=== PATIENT | female | born 1990 | race Caucasian/White ===

== ENCOUNTER → 2017-08-02 | Outpatient (CLI) | payer OTHER ==
[~2017-08-02] MED LIST: BAC PO; FAM20 PO; L-NO1TBD6 PO; PREN-127 PO; PRO25 PO
[2017-08-02 09:14] LABS: PLATELET COUNT, AUTOMATED 287 K/uL (150-450)
== END ==
LOC: LAB 08:56
PROVIDERS: ATTEND Obstetrics & Gynecology
DX: Z34.01 Encounter for supervision of normal first pregnancy, first trimester (principal); R82.79 Other abnormal findings on microbiological examination of urine
CPT/HCPCS: 36415; 81001; 85025; 86592; 86762; 86850; 86900; 86901; 87088; 87340

== ENCOUNTER → 2017-08-30 | Outpatient (CLI) | payer OTHER | LOC: LAB 09:11 | PROVIDERS: ATTEND Student in an Organized Health Care Education/Training Program | DX: Z11.3 Encounter for screening for infections with a predominantly sexual mode of transmission (principal); Z11.8 Encounter for screening for other infectious and parasitic diseases | CPT/HCPCS: 87491; 87591 ==

== ENCOUNTER → 2017-11-18 | Outpatient (CLI) | payer OTHER ==
--- NOTE | 2017-11-18 13:59 | RADIOLOGY IMAGING REPORT ---
[place] [facility] [place] NAME: Andie Joshua : 1990 MR: [id number] V: [id number] EXAM DATE: ORDERING PHYSICIAN: ELIAN CELESTE TECHNOLOGIST: Location: [facility] Patient: Andie Joshua : 1990 Visit/Account:[id number] Date of Sevice: 11/18/2017 [facility] OB ANATOMICAL SURVEY HISTORY: Anatomical survey FINDINGS: Intrauterine gestations: 1 presentation: Vertex heart rate: 150 bpm Amniotic fluid volume: AMRIT 15 cm; Largest amniotic fluid pocket 4.4 cm Placenta: Left lateral/posterior No placenta previa or retroplacental hemorrhage. Uterus: Gravid, otherwise normal Maternal adnexa: Negative Cervix: Closed Gestational Parameters: BPD: 5.3 cm; 22 weeks/ 2 days HC: 19.7 cm; 22 weeks/ 0 days AC: 16.3 cm; 21 weeks/ 3 days FL: 8.9 cm; 22 weeks/ 4 days Average ultrasound age (AUA): 22 weeks/ 1 days Estimated weight (EFW): 458 grams +/- 67 grams. Fetus is in the 88th percentile based on LMP Anatomic Survey: Intracranial structures, 4-chamber heart, stomach, kidneys, urinary bladder, spine, 3-vessel cord and cord insertion are unremarkable. Two upper and two lower extremities visualized. IMPRESSION: IUP of 22 weeks one day. JOHNSON of 03/23/2018. This correlates eight days ahead of the LMP JOHNSON of 2018 Report Dictated By: Rubén Razo MD at 11/18/2017 1:28 PM Report E-Signed By: Rubén Razo MD at 11/18/2017 1:55 PM WSN:ISRA
== END ==
LOC: RAD 07:53
PROVIDERS: ATTEND Student in an Organized Health Care Education/Training Program
DX: Z02.9 Encounter for administrative examinations, unspecified (principal)

== ENCOUNTER → 2017-12-27 | Outpatient (CLI) | payer OTHER ==
[~2017-12-27] MED LIST changes: +DIPH0.5D12 IM; +RHO(150015 IM
== END ==
LOC: LAB 08:08
PROVIDERS: ATTEND Student in an Organized Health Care Education/Training Program
DX: Z34.92 Encounter for supervision of normal pregnancy, unspecified, second trimester (principal)
CPT/HCPCS: 36415; 82950; 85027

== ENCOUNTER 2018-03-21 07:01 | Inpatient (IN) | payer OTHER ==
[~2018-03-21] VITALS: Ht 154.9 cm; Wt 72.6 kg
[2018-03-21 07:48] VITALS: BP 98/50
[2018-03-21] MEDS ORDERED: FAMOTIDINE(*) 20MG/50ML PREMIX 50 ML IVPB PRN (08:34)
[2018-03-21] MEDS ORDERED: OXYTOCIN 30 UNIT/D5LR 500 ML 500 ML IV PRN ×2 (08:34→13:00)
[2018-03-21] MEDS ORDERED: ceFAZolin(*) 2GM/D5W 50ML 50 ML IVPB PRN (08:34)
[2018-03-21] MEDS ORDERED: fentaNYL CITR 100 MCG/2 ML AMP IVP PRN (08:35)
[2018-03-21] MEDS ORDERED: METOCLOPRAMIDE 10 MG/2 ML SDV IVP PRN (08:35)
[2018-03-21] MEDS ORDERED: LIDOCAINE/SOD BICARB 8.4% SYR SC PRN (08:35)
[2018-03-21] MEDS ORDERED: TERBUTALINE SULF 1 MG/ML VIAL SUBQ PRN (08:35)
[2018-03-21] MEDS ORDERED: LIDOCAINE 1% LOCAL 300 MG/30ML INJ PRN (08:35)
[2018-03-21] MEDS ORDERED: MISOPROSTOL 25 MCG CAP PO PRN (09:00)
[2018-03-21 09:22] LABS: PLATELET COUNT, AUTOMATED 195 K/uL (150-450)
--- NOTE | 2018-03-21 13:04 | History & Physical ---
History of Present Illness Age of Patient: 27 : 1 Para or TPAL: 0 EDC per LMP: Mar 31, 2018 Estimated Gestational Age: 38.4 Chief Complaint Gush of fluid. History of Present Illness 19-year-old at 30-4/7 weeks gestation presents to labor and delivery with a chief complaint of loss of amniotic fluid. Patient reports that she had a large gush of fluid around 345 this morning. Patient reports clear amniotic fluid has reported significant gushes of fluid since then. Patient denies any vaginal bleeding. Good movement. Irregular contractions. History Patient's Blood Type: A Negative Rubella Status: Immune Group B Strep Screen: Negative Obstetrical History: Primigravid Past Medical History: Non contributory Allergies: Coded Allergies: caffeine (Verified Allergy, Mild, 03/03/09) Social History: Denies X 3. Family History: FH: asthma BROTHER OR SISTER FH: diabetes mellitus mat. grandfather Med Rec Home Meds Reported Medications Vits W-Ca,Fe,Fa(<1MG) ( VITAMINS) 1 Each Tablet, 1 EACH PO DAILY, TAB 08/02/17 Review of Systems All Systems Reviewed/Normal: Yes, Except as Noted Constitutional: No Fever, No Weight Loss, No Weight Gain, No Chills, No Night Sweats, No Other Neurological: No Syncope, No Confusion, No Weakness, No Dizziness, No Slurred Speech, No Other Eyes: No Vision Change, No Loss of Vision, No Photophobia, No Other ENT: No Hearing Loss, No Sinus Congestion, No Sore Throat, No Ear Ache, No Tinnitus, No Other Cardiovascular: No Chest Pain, No Palpitations, No Orthostatic Hypotension, No Other Respiratory: No Shortness of Breath, No Cough, No Wheezing, No Other Gastrointestinal: No Nausea, No Vomiting, No Diarrhea, No Dysphagia, No Constipation, No Early Satiety, No Hematemesis, No Hematochezia, No Melena, No Abdominal Pain, No Other Genitourinary: No Dysuria, No Hematuria, No Urinary Incontinence, No Other Musculoskeletal: No Pain, No Sprain, No Strain, No Impaired Mobility, No Other Psychiatric: No Depression, No Anxiety, No Other Exam General Exam Vital Signs Vital Signs Date Time Temp Pulse Resp B/P (MAP) Pulse Ox O2 Delivery O2 Flow Rate FiO2 03/21/18 07:48 98.7 131 18 98/50 (66 96 Room Air General Apperance: Alert/Awake/No Acute Distress Neuro: No Gross deficits Eyes: Normal Extraocular Movement & Vison, PERRLA ENT: Normal Cardiovascular: Regular Rate and Rhythm Respiratory: No Respiratory Distress Abdomen: Soft, Non-Tender, Non-Distended : Normal Musculoskeletal: No Weakness/Pain Extremities: No Cyanosis,Clubbing or Edema Integumentary: Skin Intact without Lesions or Rash Psychological: Alert & Oriented X3, Appropriate Mood & Affect Vaginal Discharge/Fluid?: Clear Fluid (+pooling +ferning) Cervical Dialation: 1 Cervical Effacement (%): 50 Cervical Consistency: Soft Cervical Position: Anterior Station: -2 Presentation: Vertex Uterine Contractions(Q min): 8 UC Resting Tone: Soft Fetus Estimated Weight(grams): 3400 Heart Tone Variabilty: Moderate FHT Accelerations: 15X15 FHT Decelerations: None FHT Category: I Medical Decision Making Data Points Result Diagram: 03/21/18 0913 Pre-Admit Course Medical Record Review: Yes VTE Prophylasis: Adult Deep Vein Thrombosis/Pulmonary: No 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 Patient to get her micrograms of by mouth Cytotec 3-4 hours later will start IV oxytocin. Increase oxytocin 2 milliunits every 20 minutes. (3) Rh negative status during Problem Qualifiers (1) Rh negative status during : Trimester: third trimester Qualified Codes: O26.893 - Other specified related conditions, third trimester; Z67.91 - Unspecified blood type, rh negative SHAWNEE RENDON Mar 21, 2018 13:04
[2018-03-21] MEDS: LR(*) 1000 ML BAG 1,000 ML IV SCH ×2 (15:26→17:56)
[2018-03-21] MEDS ORDERED: BUPIVACAINE 0.25% MPF INJ ONE (15:49)
[2018-03-21] MEDS ORDERED: BUPIVACAINE 0.5% INJ 30ML VIAL ONE (15:49)
[2018-03-21] MEDS ORDERED: FENTANYL/ROPIVACAINE 100ML BAG 100 ML ONE (15:49)
[2018-03-21] MEDS ORDERED: fentaNYL CITR 100 MCG/2 ML AMP ONE (15:49)
[2018-03-21] MEDS ORDERED: FENTANYL/ROPIVACAINE 100 ML BAG EPI PRN (15:50)
[2018-03-21] MEDS ORDERED: BUPIVACAINE 0.25% MPF INJ EPI PRN (15:50)
[2018-03-21] MEDS ORDERED: BUPIVACAINE 0.5% INJ 30ML VIAL EPI PRN (15:50)
[2018-03-21] MEDS ORDERED: LIDOCAINE/PF 2% 200MG/10ML AMP 200 MG/10 ML AMPUL EPI PRN (15:50)
[2018-03-21] MEDS ORDERED: LIDO/EPI 2% MPF 1:200,000 20ML EPI PRN (15:50)
[2018-03-21] MEDS ORDERED: EPIDURAL KEYS XX PRN (15:50)
[2018-03-21] MEDS ORDERED: fentaNYL CITR 100 MCG/2 ML AMP IT PRN (15:50)
--- NOTE | 2018-03-21 17:18 | Anesthesia OB Pre-Anes Eval ---
History of Present Illness Anesthesia Start Date: Mar 21, 2018 Complications: None known EDC: Mar 31, 2018 : 1 Para: 0 Vital Signs: Vital Signs Date Time Temp Pulse Resp B/P (MAP) Pulse Ox O2 Delivery O2 Flow Rate FiO2 03/21/18 07:48 98.7 131 18 98/50 (66) 96 Room Air Pain Ratin Heart Tones: WNL Result Diagram: 03/21/18 0913 Height (Inches): 60.00 Weight (Pounds): 165 BMI (kg/m2): 32 Past Medical History Medical History: no pertinent history Surgical History: other (ear surgery) Previous Anesthesia: general Attended Childbirth Classes?: Yes, Attended [facility] Lecture Hx Anesthesia Reactions: No Hx Family Anesthesia Reaction: No Current Medications: pitocin Home Meds Reported Medications Vits W-Ca,Fe,Fa(<1MG) ( VITAMINS) 1 Each Tablet, 1 EACH PO DAILY, TAB 08/02/17 Allergies: Coded Allergies: caffeine (Verified Allergy, Mild, 03/03/09) Anesthesia OB ROS Neurological: other; No migraines/headaches, No seizures, No neuropathy Eyes ROS: other (glasses) ENT: Denies Tooth caps, Denies Loose teeth, Denies Chipped teeth, Denies Dentures, Denies Bridges, Denies Retainers, Denies Veneers, Denies Implants, Denies Tongue ring Pulmonary: No asthma, No smoker (pks/day/yrs) Airway Class: ll Cardiovascular ROS: No edema, No arrhythmia GI ROS: clear liquids Last Solids Date: Mar 21, 2018 Last Solids Time: 08:00 ROS: No Herpes, No STD(s), No Liver Disease, No Renal Disease Endocrine ROS: No diabetes, No gestational diabetes, No thyroid disorder Musculoskeletal ROS: other (hs of dislocated hip) ASA Classification: 2 Assessment and Plan Anesthesia Plan: CSE Assessment Past Medical, Surgical, Family and Obstetric Histories reviewed. Please see ACOG chart. Epidural anesthesia risks, complications and benefits explained to patient's satisfaction for labor and vaginal delivery and/or section. General anesthesia risks and benefits explained to patient's satisfaction. Questions invited, none asked. GEOVANNA RAMEY CARPENTER MOLD Mar 21, 2018 17:18
--- NOTE | 2018-03-21 17:26 | Procedure Note ---
Anesthetic Placement Note Anesthesia Plan: CSE Permit for Anesthesia Signed: Yes Anesthesia Technique: Patient Sitting Anesthesia Prep: Chlorhexidine Interspace: L 3-4 Local Anesthetic: 1% Lidocaine, 25 Gauge Needle Amount Local - cc's: 3 Anesthesia Needle: 17g Touhy/Schliff Anesthesia Attempts: 1 Loss of Resistance: Air Depth of DAVONTE (cm): 4 Epidural Needle Placement: No CSF, No Blood, No Parasthesia Intrathecal Needle: 27 Gauge Pencan Cerebral Spinal Fluid: Yes, Clear Catheter Insertion (cm): 7 Catheter Type: Pretty - Spring Wound Epidural Dressing: Tegaderm, Tape, Adhesive Dewitt Anesthesia Tray: Lot Number ([id number]), Expiration Date (2019-01-07), Reference Number ([id number]) Anesthesia Medications: Intrathecal Dose: mcg Fentanyl (15), mg Marcaine MPF (1.75), Time (1612) Epidural Test Dose: 1.5 Lido/Epi (1:200,000), Dose - mL (3), Time (1632), Negative Epidural Loading Dose: 0.2% Ropivicaine, With Fentanyl 2mcg/ml, Dose - ml (4), Time (1634) Epidural Infusion: 0.2% Ropivicaine, With Fentanyl 2mcg/ml, Start Time: (1634) Epidural Pump Setting: Bolus Dose - mL (5), Lockout - Minutes (20), Maintenance Rate - mL/hr (4), Maximum per Hour - mL (19) Complications: None Comment: Pt. was able to maintain position easily for epidural placement. She became comfortable within 5 minutes. Mild itching noted. GEOVANNA RAMEY CRNA Mar 21, 2018 17:26
--- NOTE | 2018-03-21 17:44 | Labor Progress Note ---
Labor Subjective Progress Notes Subjective Comfortable s/p epidural. Still leaking fluid. Feeling Movement?: Yes Vaginal Discharge/Fluid: Bloody Show, Clear Fluid Labor Pain: Mild, Comfortable Neurological: No Headache, No Other Labor Objective Vital Signs Vital Signs Date Time Temp Pulse Resp B/P (MAP) Pulse Ox O2 Delivery O2 Flow Rate FiO2 03/21/18 07:48 98.7 131 18 98/50 (66) 96 Room Air Vaginal Discharge/Fluid?: Clear Fluid Cervical Dialation: 4 Cervical Effacement (%): 80 Cervical Consistency: Soft Cervical Position: Mid Station: -2 Presentation: Vertex Uterine Contractions(Q min): 2 Uterine Contraction Strength: Moderate Fetus Heart Tone Variabilty: Moderate FHT Accelerations: 15X15 FHT Decelerations: None FHT Category: I Other Result Diagram: 03/21/18 0913 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 Pt s/p epidural. Expect . Pt currently on oxytocin 16 mU/min. (3) Rh negative status during Problem Qualifiers (1) Rh negative status during : Trimester: third trimester Qualified Codes: O26.893 - Other specified related conditions, third trimester; Z67.91 - Unspecified blood type, rh negative SHAWNEE RENDON DO Mar 21, 2018 17:44
[2018-03-21] MEDS: ONDANSETRON 4 MG/2 ML VIAL IVP PRN ×2 (17:56→22:50)
--- NOTE | 2018-03-21 18:57 | Anesthesia Progress Note ---
Progress/Maintenance Anesthesia Note Date: Mar 21, 2018 Anesthesia Note Time: 18:55 Pain Intensity: 6 Pump: On Pump Rate (ML/HR): 6 Sensory Level: T-12 Motor Level: Bending Knees-Bilateral Dilatation: 4 Position: Right, Tilt Drug Bolus: 0.5% Marcaine (5 ml), Other (Fentenyl 50 mcgs) Assessment and Plan Assessment Pt. had been very comfortable up until perla catheter placement and Vag exam. Bolus per pump and pt. states she still "feels the perla" and now "feels contractions". Manual bolus given and will observe for improved comfort level. GEOVANNA RAMEY CRNA Mar 21, 2018 18:57
--- NOTE | 2018-03-21 20:27 | Anesthesia Progress Note ---
Progress/Maintenance Anesthesia Note Date: Mar 21, 2018 Anesthesia Note Time: 20:20 Pain Intensity: 6 Pump: On Pump Rate (ML/HR): 6 Sensory Level: L4 Motor Level: Bending Knees-Bilateral, Other (legs are heavy) Dilatation: 6 Position: Right, Tilt Drug Bolus: 0.5% Marcaine (10 ml), Other (35 mcgs) Assessment and Plan Assessment Pt. continues to constantly moan with contractions, until she is spoken to or other interruptions in the room. Then she is able to talk while having a contraction. Pt. states she has one area in lower front pelvis that is where she feels the contractions. Assisted to turn onto rt side. Her legs are heavy but she can move them with assistance. GEOVANNA RAMEY CRNA Mar 21, 2018 20:27
--- NOTE | 2018-03-21 22:43 | Anesthesia Progress Note ---
Progress/Maintenance Anesthesia Note Date: Mar 21, 2018 Anesthesia Note Time: 22:30 Pain Intensity: 10 Pump: On Pump Rate (ML/HR): 10 Motor Level: Bending Knees-Bilateral, Other (legs are heavy) Dilatation: 8 Position: Left, Tilt Drug Bolus: 0.5% Marcaine (7 ml) Assessment and Plan Assessment Pt. awoke from a long nap and now feels her pain is a "10". Bolus given and pump rate increased to 10 ml/hr. Pt. continues to moan thru first 1/2of contractions, then able to talk. GEOVANNA RAMEY CRNA Mar 21, 2018 22:43
[2018-03-22] VITALS (7 sets, daily range): BP systolic 109–135; BP diastolic 62–103; Ht 154.9 cm; Wt 72.6 kg
--- NOTE | 2018-03-22 00:37 | Anesthesia Progress Note ---
Progress/Maintenance Anesthesia Note Date: Mar 22, 2018 Anesthesia Note Time: 00:30 Pain Intensity: 7 Pump: On Pump Rate (ML/HR): 10 Sensory Level: T-12 Motor Level: Bending Knees-Bilateral Dilatation: 8 Position: Right, Tilt Drug Bolus: 0.5% Marcaine (5 ml) Assessment and Plan Assessment Pt. c/o pain with contractions an that her legs are " not as numb". Offered and recommended to replace epidural catheter as pt is not as comfortable as should be for amount of medication given Pt. quickly said "no" to replacing. She was then able to take deep breaths thru next contraction. GEOVANNA RAMEY CRNA Mar 22, 2018 00:37
[2018-03-22] MEDS: LR(*) 1000 ML BAG 1,000 ML IV SCH (00:38)
--- NOTE | 2018-03-22 02:40 | Labor Progress Note ---
Labor Subjective Progress Notes Subjective Pt compete and getting ready to start pushing. Feeling Movement?: Yes Vaginal Discharge/Fluid: Bloody Show Labor Pain: Mild Neurological: No Headache, No Other Eyes: No Visual Disturbances Labor Objective Vital Signs Vital Signs Date Time Temp Pulse Resp B/P (MAP) Pulse Ox O2 Delivery O2 Flow Rate FiO2 03/21/18 07:48 98.7 131 18 98/50 (66) 96 Room Air Cervical Dialation: 10 Cervical Effacement (%): 100 Cervical Consistency: Soft Cervical Position: Anterior Station: +1 Presentation: Vertex Uterine Contractions(Q min): 2 Uterine Contraction Strength: Moderate UC Resting Tone: Soft Fetus Heart Tones: 140 Heart Tone Variabilty: Moderate FHT Accelerations: 15X15 FHT Decelerations: None FHT Category: I Other Result Diagram: 03/21/18 0913 Assessment and Plan 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 Expect . Pt has been pushing now for about 50 minutes. (3) Rh negative status during Problem Qualifiers (1) Rh negative status during : Trimester: third trimester Qualified Codes: O26.893 - Other specified related conditions, third trimester; Z67.91 - Unspecified blood type, rh negative SHAWNEE RENDON DO Mar 22, 2018 02:39
--- NOTE | 2018-03-22 03:37 | Anesthesia Progress Note ---
Progress/Maintenance Anesthesia Note Date: Mar 22, 2018 Anesthesia Note Time: 03:20 Pain Intensity: 3 Pump: Off Motor Level: Bending Knees-Bilateral Dilatation: 10 Position: Semi-Fowlers Drug Bolus: 0.5% Marcaine (4 ml) Assessment and Plan Assessment Pt. had requested C/S as she was "tired of pushing". Very vocal with pushing, encouraged to hold her breath to improve pushing strength. Pt. has difficulty noting starting of contractions. Pump rate decreased to 6 ml/hr. Pt. requested more epidural medication. Explained that would only decrease her pushing strength. Dr. Paula present to talk with pt. No further medication given til after delivery of viable female. Empty syringe attached to epidural catheter and RN agrees to remove with ambulation. Patient instructed the first ambulation is to be with help of nursing staff. Instructed to preform deep knee bends at bedside before walking. Anesthesia Stop Day: Mar 22, 2018 Anesthesia Stop Time: 03:20 GEOVANNA RAMEY CRNA Mar 22, 2018 03:37
[2018-03-22] MEDS ORDERED: APAP/HYDROCODONE 325/5 TAB PO PRN (03:45)
[2018-03-22] MEDS ORDERED: BENZOCAINE 20% 60 ML BTL TP PRN (03:45)
[2018-03-22] MEDS ORDERED: MAGNESIUM HYDROXIDE* 30ML UDCP PO PRN (03:45)
[2018-03-22] MEDS ORDERED: HYDROCORTISONE 2.5% CR 30GM TB PR PRN (03:45)
[2018-03-22] MEDS ORDERED: LANOLIN OINT 7 GM TUBE TP PRN (03:45)
--- NOTE | 2018-03-22 03:57 | OB Delivery Note ---
Delivery Note Vaginal Delivery Type: Vacuum Delivery Date: Mar 22, 2018 Delivery Time: 03:09 Estimated Gestational Age(wks): 38.5 Indication (if vag op): Poor maternal effort, Maternal request for with +3 station. Length of Labor Stage I (hrs): 15 Length of Labor Stage II (hrs): 2 Labor Stage III (minutes): 4 Delivery Anesthesia: Epidural Infant Sex: Female Infant Weight (gms): 32[address] [place] Apgars: 1 Minute (7), 5 Minute (9) Repair Needed: 2nd Degree Estimated Blood Loss: 500 Pulp Mill Operator in Attendence: Yes SHAWNEE RENDON DO Mar 22, 2018 03:57
[2018-03-22] MEDS: GLYCERIN/WITCH HAZEL LEAF 1 PK TOP PRN (05:19)
[2018-03-22] MEDS: IBUPROFEN 800 MG TAB PO SCH ×3 (05:19→20:48)
[2018-03-22] MEDS ORDERED: LIDOCAINE 1% LOCAL 300 MG/30ML 30 ML ONE (06:58)
[2018-03-22] MEDS: DOCUSATE CALCIUM 240 MG CAP PO SCH ×2 (08:51→20:48)
[2018-03-22] MEDS ORDERED: MEASLES,MUMP,RUBELLA VAC 0.5ML SUBQ ONE (09:00)
[2018-03-22] MEDS ORDERED: DIPHTH/TETANUS/ACEL. PERTUSSIS IM ONLY ONE (09:00)
[2018-03-22] MEDS ORDERED: INFLUENZA VIRUS VAC 0.5ML SYR IM ONLY ONE (09:00)
--- NOTE | 2018-03-22 11:04 | OB/GYN Progress Note ---
OB Subjective Progress Notes Subjective Doing good a few hours since delivery. Reports she hasn't been out of bed since delivery. Bleeding appropriate. Tolerating regular diet. GI: NEG Nausea, NEG Vomiting, NEG Flatus, NEG Bowel Movement : Vaginal Bleeding, Moderate Pain: Mild Neurological: No Headache, No Other Eyes: No Visual Disturbances OB Objective Physical Exam Vital Signs Date Time Temp Pulse Resp B/P (MAP) Pulse Ox O2 Delivery O2 Flow Rate FiO2 03/22/18 06:15 100.1 122 18 109/68 (82) 03/22/18 04:54 Room Air 03/21/18 07:48 96 Intake and Output 03/22/18 07:00 Intake Total 1500 ml Output Total 2300 ml Balance -800 ml Intake IV Total 1500 ml Output Urine Total 2300 ml General Appearance: Alert/Awake/No Acute Distress Neurological: No Gross deficits Eyes: Normal Extraocular Movement & Vison, PERRLA Respiratory: No Respiratory Distress Extremities: No Cyanosis,Clubbing or Edema Integumentary: Skin Intact without Lesions or Rash Psychological: Alert & Oriented X3, Appropriate Mood & Affect Result Diagram: 03/21/18 0913 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 Expect patient to ambulate as epidural continues to wear off. Increase ambulation. Follow up tomorrow. (3) Rh negative status during Problem Qualifiers (1) Rh negative status during : Trimester: third trimester Qualified Codes: O26.893 - Other specified related conditions, third trimester; Z67.91 - Unspecified blood type, rh negative SHAWNEE RENDON DO Mar 22, 2018 11:04
[2018-03-22] MEDS: ACETAMINOPHEN 325 MG TAB PO PRN ×2 (12:31→18:51)
--- NOTE | 2018-03-22 15:19 | Anesthesia Post Eval Note ---
Anesthesia Post Eval Note Vital Signs Date Time Temp Pulse Resp B/P (MAP) Pulse Ox O2 Delivery O2 Flow Rate FiO2 03/22/18 06:15 100.1 122 18 109/68 (82) 03/22/18 04:54 Room Air 03/21/18 07:48 96 Pt able to participate in Eval: Yes Cardiovascular Status: Satisfactory Respiratory Status: Satisfactory Pain Managment: Satisfactory PO Nausea/Vomiting: Satisfactory Temperature Management: Satisfactory Mental Status: Satisfactory, Alert, Oriented X3 Post-Op Hydration Status: Satisfactory, Tolerating PO Well, Voiding w/o D ifficulty Anesthesia Type: LEB Anesthesia Tolerance: Tolerated procedure well without apparent anesthetic complications. LP site clear, no redness or edema. Denies headache or any residual paresthesia. Vital Signs Stable, Patient comfortable and condition stable. GEOVANNA RAMEY CRNA Mar 22, 2018 15:19
--- NOTE | 2018-03-22 22:43 | DELIVERY NOTE ---
DELIVERY DATE: March 22, 2018 SURGEON: Giovanny Paula DO ANESTHESIA: Epidural and 14 mL of 1% lidocaine for repair only. PREOPERATIVE DIAGNOSES 1. A 27-year-old 1, para zero, at 38-5/7 weeks' gestation. 2. Premature rupture of membranes. POSTOPERATIVE DIAGNOSES 1. A 27-year-old 1, para zero, at 38-5/7 weeks' gestation. 2. Premature rupture of membranes. 3. Delivered. PROCEDURE Vacuum-assisted vaginal delivery. FINDINGS Live-born female infant at 0309, Apgars of 7 and 9, weighing 3280 g, 7 pounds 4 ounces. Three-vessel cord. Intact placenta over a second-degree midline laceration. PATHOLOGY None. ESTIMATED BLOOD LOSS 500 mL COMPLICATIONS None known. CONDITION Stable times two. Mother and infant to remain in the LDRP. COUNTS Correct for all needles, laps, sponges, and instruments. LABOR SUMMARY Patient is a 27-year-old 1, para zero, who presented at 38-4/7 weeks' gestation with the complaint of loss of amniotic fluid. Patient states she thinks her water broke on 03/21/2018 around 0345 a.m. Patient reports she had a significant gush of fluid that has continued. She reports continued leaking since 3:45. On exam, patient was noted to be grossly ruptured. She was only dilated 1 cm. Because of her nulliparous state, I did give her 100 mcg of misoprostol by mouth to help with cervical ripening and four hours later started her on oxytocin. Oxytocin increased until we had an adequate contraction pattern. Patient eventually did receive an epidural at 4 cm dilation for pain control. Epidural was continued throughout the entire labor progress. Patient did make slow, but adequate change, eventually did get to complete and +1 station. At this point, the patient did begin pushing. Because of concerns with pain, the patient did request delivery. Upon my evaluation, patient was +2 with semi-effective pushing. I offered her a vacuum-assisted vaginal delivery before we attempted a , and patient agreed to attempt a vacuum delivery. Patient was counseled accordingly for risks, benefits, and alternatives to vacuum delivery. She understands risks for maternal and and agrees to proceed with vacuum-assisted delivery. DELIVERY SUMMARY Patient was placed in dorsal lithotomy position. She was prepped and draped in the usual sterile manner. The Elizondo catheter was removed prior to patient being placed in lithotomy position. The cervix was complete, and the patient had been pushing for approximately an hour. The vacuum was placed 2 cm anterior to the posterior fontanelle. It was cleared of all maternal tissues. With contraction, vacuum pressure was applied to the green zone on the Kiwi vacuum, which was approximately 500 mmHg per that device. With maternal effort, traction was applied. With this first contraction, there was one pop-off noted. With the subcutaneous contraction, the vacuum was reapplied. An external force was applied with the vacuum until the infant's chin was easily controlled at the perineum. With the 's chin controlled, the vacuum suction was removed. Downward motion delivered the anterior shoulder, anterior motion to deliver the posterior shoulder, with the remainder of the infant's body delivering spontaneously. The mouth and nose were bulb suctioned. The cord was clamped times two and cut by the infant's father, at which time the infant was placed on maternal abdomen to be vigorously cleaned and dried. Cord blood gas was obtained. The placenta delivered spontaneously with gentle cord traction. Oxytocin was infused to help with uterine tone. Uterine massaged and deemed firm. Upon further inspection, it was noted that there was a second-degree midline laceration. The uterus was firm at the umbilicus. With the uterus firm, the second-degree was repaired with a 3-0 Vicryl in the usual manner. With repair complete, the patient was inspected and found to be hemostatic. At this point, the patient was cleaned, bed was reassembled, and the mother and were allowed to continue to roth. YENNI
[2018-03-23] MEDS: IBUPROFEN 800 MG TAB PO SCH ×3 (02:44→21:54)
[2018-03-23 02:45] VITALS: BP 118/70
[2018-03-23 07:58] VITALS: BP 108/68
[2018-03-23] MEDS: DOCUSATE CALCIUM 240 MG CAP PO SCH ×2 (09:45→21:54)
--- NOTE | 2018-03-23 10:28 | OB/GYN Progress Note ---
OB Subjective Progress Notes Subjective Doing good this morning. 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 Bleeding was heavier yesterday. Tolerating regular diet. Ambulatory. Voiding with out any difficulty. GI: NEG Nausea, NEG Vomiting, NEG Flatus, NEG Bowel Movement : Voiding Well, Vaginal Bleeding, Moderate Pain: Mild, Tolerating PO Pain Meds Neurological: No Headache, No Other Eyes: No Visual Disturbances OB Objective Physical Exam Vital Signs Date Time Temp Pulse Resp B/P (MAP) Pulse Ox O2 Delivery O2 Flow Rate FiO2 03/23/18 07:58 97.7 101 108/68 (81) Room Air 03/23/18 02:45 95 03/22/18 22:54 16 Intake and Output 03/23/18 07:00 Intake Total 1080 ml Output Total 1000 ml Balance 80 ml Intake Oral 1080 ml Output Urine Total 1000 ml # Voids 1 General Appearance: Alert/Awake/No Acute Distress Neurological: No Gross deficits Eyes: Normal Extraocular Movement & Vison, PERRLA Cardiovascular: Normal Rhythm & Peripheral Pulses, Regular Rate and Rhythm Respiratory: No Respiratory Distress Abdomen: Soft, Non-Tender, Non-Distended, Fundus Firm : Normal Musculoskeletal: No Weakness/Pain Extremities: No Cyanosis,Clubbing or Edema Integumentary: Skin Intact without Lesions or Rash Psychological: Alert & Oriented X3, Appropriate Mood & Affect Result Diagram: 03/23/18623 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 Pt desires to stay through tomorrow for support with . Plan discharge tomorrow. (3) Rh negative status during Status: Resolved Assessment & Plan: Rhogam/rhophylac today. Problem Qualifiers (1) Rh negative status during : Trimester: third trimester Qualified Codes: O26.893 - Other specified related conditions, third trimester; Z67.91 - Unspecified blood type, rh negative SHAWNEE RENDON DO Mar 23, 2018 10:28
[2018-03-23] MEDS ORDERED: IBUP800T37 PO (10:30)
[2018-03-23] MEDS ORDERED: LOR5/325 PO (10:30)
--- NOTE | 2018-03-23 10:34 | OB/GYN Discharge Summary ---
Discharge Summary Reason for Hosp/Final Diag: (1) 38 weeks gestation of Status: Resolved (2) Spontaneous rupture of amniotic membranes Status: Resolved Hospital Course & Plan: Pt presented with loss of amniotic fluid. Underwent cervical ripening and oxytocin. Pt progressed to complete. Did require vacuum assisted vaginal delivery. Pt remained in the hospital for 2 days post . Discharged home. (3) Rh negative status during Status: Resolved Hospital Course & Plan: Rhogam/rhophylac today. Lates Vital Signs Vital Signs Date Time Temp Pulse Resp B/P (MAP) Pulse Ox O2 Delivery O2 Flow Rate FiO2 03/23/18 07:58 97.7 101 108/68 (81) Room Air 03/23/18 02:45 95 03/22/18 22:54 16 Weight (Pounds): 160 Result Diagram: 03/23/18623 Condition: Improved Discharge: Home Home Meds Active Scripts Hydrocodone Bit/Acetaminophen (HYDROCODON-ACETAMINOPHEN 5-325) 1 Each Tablet, 1- 2 EACH PO Q4H PRN for PAIN, #20 TAB 0 Refills Prov:SHAWNEE RENDON DO 03/23/18 Reported Medications Vits W-Ca,Fe,Fa(<1MG) ( VITAMINS) 1 Each Tablet, 1 EACH PO DAILY, TAB 08/02/17 Follow up with: [facility] [phone], Dr. Rendon [phone] Follow up in: 6 wks PP or PO, 2 wks PO Discharge Diet: As Tolerates Discharge Activity: As Tolerates, Pelvic Rest Problem Qualifiers (1) Rh negative status during : Trimester: third trimester Qualified Codes: O26.893 - Other specified related conditions, third trimester; Z67.91 - Unspecified blood type, rh negative SHAWNEE RENDON DO Mar 23, 2018 10:33
[2018-03-23 12:00] VITALS: BP 108/64
[2018-03-23 17:30] VITALS: BP 111/58
[2018-03-23 20:22] VITALS: BP 113/81
[2018-03-24] MEDS: ACETAMINOPHEN 325 MG TAB PO PRN (02:07)
[2018-03-24 04:22] VITALS: BP 121/71
[2018-03-24] MEDS: IBUPROFEN 800 MG TAB PO SCH ×2 (04:56→12:29)
[2018-03-24 08:00] VITALS: BP 111/70
[2018-03-24] MEDS: GLYCERIN/WITCH HAZEL LEAF 1 PK TOP PRN (09:33)
[2018-03-24] MEDS: DOCUSATE CALCIUM 240 MG CAP PO SCH (09:33)
--- NOTE | 2018-03-24 10:38 | OB/GYN Progress Note ---
OB Subjective Progress Notes Subjective Doing good this morning. hasn't needed any pain medication other then Ibuprofen. Tolerating regular diet. Ambulatory. Voiding with out any difficulty. with minimal difficulty. GI: NEG Nausea, NEG Vomiting, NEG Flatus, NEG Bowel Movement : Voiding Well Pain: Mild Neurological: No Headache, No Other Eyes: No Visual Disturbances OB Objective Physical Exam Vital Signs Date Time Temp Pulse Resp B/P (MAP) Pulse Ox O2 Delivery O2 Flow Rate FiO2 03/24/18 04:22 98.0 96 16 121/71 (88) 03/23/18 07:58 Room Air 03/23/18 02:45 95 Intake and Output 03/24/18 06:59 Intake Total 480 ml Balance 480 ml Intake Oral 480 ml General Appearance: Alert/Awake/No Acute Distress Neurological: No Gross deficits Eyes: Normal Extraocular Movement & Vison, PERRLA Cardiovascular: Normal Rhythm & Peripheral Pulses, Regular Rate and Rhythm Respiratory: No Respiratory Distress Abdomen: Soft, Non-Tender, Non-Distended, Fundus Firm : Normal Musculoskeletal: No Weakness/Pain Extremities: No Cyanosis,Clubbing or Edema Integumentary: Skin Intact without Lesions or Rash Psychological: Alert & Oriented X3, Appropriate Mood & Affect Result Diagram: 03/23/18 0624 Assessment and Plan [employer]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 Follow up in the office in 2 weeks. (3) Rh negative status during Status: Resolved Problem Qualifiers (1) Rh negative status during : Trimester: third trimester Qualified Codes: O26.893 - Other specified related conditions, third trimester; Z67.91 - Unspecified blood type, rh negative SHAWNEE RENDON DO Mar 24, 2018 10:38
[2018-03-24 12:10] VITALS: BP 115/78
== END 2018-03-24 13:50 | disposition home or self-care (01) | DRG 806 ==
LOC: OBSVTOIN 07:01 → OB 07:01
PROVIDERS: ADMIT Student in an Organized Health Care Education/Training Program; ATTEND Student in an Organized Health Care Education/Training Program
PROC: 10D07Z6 Extraction of Products of Conception, Vacuum, Via Natural or Artificial Opening (ICD-10-PCS; principal; 2018-03-22)
PROC: 0KQM0ZZ Repair Perineum Muscle, Open Approach (ICD-10-PCS; 2018-03-22)
DX: O42.013 Preterm premature rupture of membranes, onset of labor within 24 hours of rupture, third trimester (principal); O36.0130 Maternal care for anti-D [Rh] antibodies, third trimester, not applicable or unspecified; Z37.0 Single live birth; Z3A.38 38 weeks gestation of pregnancy; O70.1 Second degree perineal laceration during delivery; O75.81 Maternal exhaustion complicating labor and delivery
CPT/HCPCS: 36415; 84112; 85025; 85027; 85461; 86703; 86850; 86900; 86901; J2001; J2405; J2590; J2791; J3010; J7120; S0020

== ENCOUNTER → 2018-06-16 | Outpatient (REF) ==
[2018-03-22 04:54] VITALS: BMI 30.2
[~2018-06-16] MED LIST changes: -DIPH0.5D12 IM; +DIPH0.5S2 IM; +IBUP800T37 PO; +LOR5/325 PO; +NORE0.3536 PO
--- NOTE | 2018-06-16 12:19 | RADIOLOGY IMAGING REPORT ---
FACILITY: [facility] - [place] PATIENT NAME: Andie Fraser : 1990 MR: [id number] V: [id number] EXAM DATE: ORDERING PHYSICIAN: BRONSON SALGADO TECHNOLOGIST: Location: [facility] - [place] Patient: Andie Fraser : 1990 Visit/Account:[id number] Date of Sevice: 06/16/2018 CHEST SINGLE AP Additional pertinent History: Work physical COMPARISON STUDIES: none FINDINGS: Support lines and catheters: None Lungs and Pleura: Lung fraser well expanded with no infiltrates or consolidations. No parenchymal ma ss lesions are seen. There are no effusions Heart and vasculature: Negative. Kamlaa and Mediastinum: Negative. Bones and Chest wall: Negative. Upper Abdomen: Negative. IMPRESSION: 1. Normal chest Report Dictated By: Rubén Razo MD at 06/16/2018 12:11 PM Report E-Signed By: Rubén Razo MD at 06/16/2018 12:14 PM WSN:[email or web address]
== END ==
LOC: RAD 10:34
PROVIDERS: ATTEND Physician Assistant
DX: Z02.89 Encounter for other administrative examinations (principal)
CPT/HCPCS: 71045